=== PATIENT | female | born 1945 | race Caucasian/White ===

== ENCOUNTER 2016-09-02 10:19 | Outpatient (CLI) | payer MEDICARE ==
--- NOTE | 2016-09-02 18:04 | RAD ---
RIGHT SHOULDER 4 VIEWS: Date: 09/02/16 No fracture or dislocation was seen. The AC joint is not widened. The acromion is a little irregular and thick, but this does not appear to be anything acute. The visible adjacent ribs appeared intact . No periarticular calcifications. IMPRESSION: No acute findings. POS: HOME
== END 2016-09-02 10:20 | disposition home or self-care (01) ==
LOC: BURRAD 10:19
PROVIDERS: ATTEND Family Medicine
DX: M25.511 Pain in right shoulder (principal)
CPT/HCPCS: 36415; 80053; 80061; 83036; 85025

== ENCOUNTER 2016-09-02 10:37 | Outpatient (CLI) | payer MEDICARE ==
[2016-09-02 11:03] LABS: #Basophils 0.1 thou/uL (0.0-0.2); #Eosinphils 0.3 thou/uL (0.0-0.7); #Lymphocytes 1.8 thou/uL (1.20-3.40); #Monocytes 0.5 thou/uL (0.11-0.59); #Neutrophils 4.1 thou/uL (1.40-6.50); %Basophils 2.2 % (0.0-1.0); %Eosinophils 4.3 % (0.0-10.0); %Lymphocytes 26.2 % (21.0-51.0); %Neutrophils 60.3 % (42.0-75.0); Hemoglobin 14.6 g/dL (12.0-16.0); Mean Corpuscular HGB CONC 32.5 g/dL (32.0-36.0); Mean Corpuscular Hemoglobin 30.3 pg (27.0-31.0); Mean Corpuscular Volume 93.4 fl (81.0-99.0); Mean Platelet Volume 7.8 fL (7.4-10.4); Platelet Count 148 thou/uL (130-400); RBC Distribution Width 13.8 % (11.5-14.5); Red Blood Cell (RBC) Count 4.81 mill/uL (4.20-5.40); White Blood Cell (WBC) Count 6.8 thou/uL (4.8-10.8)
[2016-09-02 11:15] LABS: Hemoglobin A1c 6.9 % (4.0-6.0)
[2016-09-02 11:20] LABS: ALT (SGPT) 14 U/L (0-55); AST (SGOT) 33 U/L (5-34); Alkaline Phosphatase 56 U/L (40-150); Anion Gap 12 mmol/L (10-20); BUN (Urea Nitrogen) 15 mg/dL (9.8-20.1); Bilirubin, Total 0.9 mg/dL (0.2-1.2); Calc. Creatinine Clearance 0 mL/min (70-130); Calcium 9.9 mg/dL (7.8-10.44); Carbon Dioxide 28 mmol/L (23-31); Chloride 105 mmol/L (98-107); Cholesterol 139 mg/dL (< 200 Desired); Estimated GFR-MDRD 36; Globulin 3.1 g/dL (2.4-3.5); Glucose 142 mg/dL (80-115); HDL Cholesterol 28 mg/dL (>60 Neg Risk); LDL Cholesterol, Calculated 62 mg/dL; Potassium 4.4 mmol/L (3.5-5.1); Protein, Total 7.1 g/dL (5.8-8.1); Sodium 141 mmol/L (136-145); Triglycerides 243 mg/dL (Less than 150)
== END 2016-09-02 10:38 | disposition home or self-care (01) ==
LOC: HPCALD 10:37
PROVIDERS: ATTEND Family Medicine
DX: E78.5 Hyperlipidemia, unspecified (principal); E11.9 Type 2 diabetes mellitus without complications; I10 Essential (primary) hypertension
CPT/HCPCS: 36415; 80053; 80061; 83036; 85025

== ENCOUNTER 2018-02-03 10:02 | Outpatient (CLI) | payer MEDICARE ==
--- NOTE | 2018-02-03 13:14 | ULT ---
RENAL ULTRASOUND: History: Stage 4 kidney disease. Type II diabetes. Comparison: None. Technique: Sagittal and transverse imaging performed. FINDINGS: Suboptimal evaluation of both kidneys. There is bilateral renal cortical thinning and atrophy. Bilate rally no hydronephrosis. Right kidney measures 9.9 x 5.7 x 4.3 cm. Left kidney is 9.5 x 4.7 x 4.5 cm. Limited evaluation of the urinary bladder due to inadequate distention. Bladder wall thickness is 0.5 cm. Right ureteral jet is noted. IMPRESSION: Suboptimal evaluation. Grossly no hydronephrosis. POS: [facility]
== END 2018-02-03 10:03 | disposition home or self-care (01) ==
LOC: BURULT 10:02
PROVIDERS: ATTEND Internal Medicine Nephrology
DX: N18.4 Chronic kidney disease, stage 4 (severe) (principal)
CPT/HCPCS: 76770

== ENCOUNTER 2018-11-22 09:12 | Outpatient (CLI) | payer MEDICARE ==
--- NOTE | 2018-11-22 10:41 | RAD ---
Radiograph left wrist 3 views: DATE: 11/22/2018 HISTORY: 73-year-old female with left wrist pain FINDINGS: No fracture is identified. However, if there is snuffbox tenderness following trauma that suggests an occult scaphoid fracture, then the general recommendations is immobilization and follow-up imaging in 5-10 days. There are prominent subchondral cysts at the waist and proximal pole of the scaphoid. S capholunate interval is normal. Severe DJD at first CMC. No high-grade DJD in any of the rest of the joints. Alignment is normal elsewhere. IMPRESSION: Severe osteoarthrosis of the first carpometacarpal joint.
== END 2018-11-22 09:13 | disposition home or self-care (01) ==
LOC: BURRAD 09:12
PROVIDERS: ATTEND Family Medicine
DX: M25.532 Pain in left wrist (principal); M18.12 Unilateral primary osteoarthritis of first carpometacarpal joint, left hand

== ENCOUNTER 2019-04-08 10:59 | Outpatient (CLI) | payer MEDICARE ==
--- NOTE | 2019-04-08 14:04 | RAD ---
CHEST 2 VIEWS: DATE: 04/08/2019. FINDINGS: Comparison is made with an 03/22/2013 study. Mild cardiomegaly is present as before and is approxima tely the same. The lungs are clear. The vasculature is slightly more prominent than before, but I a m not convinced of failure at this point. There is no sign of a pneumothorax. The trachea is midlin e. IMPRESSION: Cardiomegaly. Mild interstitial prominence which may or may not be significant. POS: HOME
--- NOTE | 2019-04-08 14:04 | RAD ---
LEFT RIBS: 04/08/2019 TECHNIQUE: Multiple views are provided. FINDINGS: The overlying soft tissue significantly degrades the sensitivity of this study, so subtle rib fractur es might be easily missed. [id number], there were no fractures or areas strongly suspicious of such. There was no sign of pl eural effusion or pneumothorax on the left. IMPRESSION: Lowered sensitivity study showing no obvious rib fractures. POS: HOME
== END 2019-04-08 11:00 | disposition home or self-care (01) ==
LOC: BURRAD 10:59
PROVIDERS: ATTEND Family Medicine
DX: R05 Cough (principal); R07.81 Pleurodynia; I51.7 Cardiomegaly
CPT/HCPCS: 71046

== ENCOUNTER 2020-08-07 09:26 | Emergency (ER) | payer MEDICARE ==
[2020-08-07 11:15] LABS: #Basophils 0.2 thou/uL (0.0-0.2); #Eosinphils 0.3 thou/uL (0.0-0.7); #Lymphocytes 1.1 thou/uL (1.20-3.40); #Monocytes 0.7 thou/uL (0.11-0.59); %Basophils 1.8 % (0.0-1.0); %Eosinophils 2.5 % (0.0-10.0); %Lymphocytes 7.9 % (21.0-51.0); %Neutrophils 82.8 % (42.0-75.0); Mean Corpuscular Volume 90.8 fL (78.0-98.0); Mean Platelet Volume 7.7 fL (7.4-10.4); Platelet Count 159 thou/uL (130-400); RBC Distribution Width 13.9 % (11.5-14.5); Red Blood Cell (RBC) Count 4.46 mill/uL (4.20-5.40); White Blood Cell (WBC) Count 13.3 thou/uL (4.8-10.8)
[2020-08-07 11:38] LABS: ALT (SGPT) 12 U/L (8-55); AST (SGOT) 34 U/L (5-34); Albumin 3.8 g/dL (3.4-4.8); Alkaline Phosphatase 47 U/L (40-110); Anion Gap 17 mmol/L (10-20); BUN (Urea Nitrogen) 17 mg/dL (9.8-20.1); CK (CPK) 51 U/L (29-168); Calc. Creatinine Clearance 0 mL/min (70-130); Calcium 8.9 mg/dL (7.8-10.44); Carbon Dioxide 22 mmol/L (23-31); Chloride 105 mmol/L (98-107); Globulin 3.1 g/dL (2.4-3.5); Glucose 153 mg/dL (83-110); Lipase 25 U/L (8-78); Potassium 3.9 mmol/L (3.5-5.1); Protein, Total 6.9 g/dL (5.8-8.1); Sodium 140 mmol/L (136-145)
[2020-08-07 11:55] LABS: CKMB 0.8 ng/mL (0-6.6)
[2020-08-07] MEDS ORDERED: Aspirin Chewable 81 MG TAB ONE (12:13)
[2020-08-07 13:30] LABS: SARS-CoV-2 NAA Rapid Test Not Detected (NotDetected)
== END 2020-08-07 13:20 | disposition short-term general hospital (02) ==
LOC: BURERS 09:26
DX: I11.0 Hypertensive heart disease with heart failure (principal); I50.9 Heart failure, unspecified; E11.9 Type 2 diabetes mellitus without complications; J45.909 Unspecified asthma, uncomplicated; M19.90 Unspecified osteoarthritis, unspecified site; R79.89 Other specified abnormal findings of blood chemistry; Z87.891 Personal history of nicotine dependence; Z79.899 Other long term (current) drug therapy; Z79.84 Long term (current) use of oral hypoglycemic drugs; Z20.822 Contact with and (suspected) exposure to COVID-19
CPT/HCPCS: 0240U; 71045; 80053; 82550; 82553; 83690; 83880; 84484; 85025; 93005; 94640; J7620

== ENCOUNTER 2021-09-22 17:41 | Emergency (ER) | payer MEDICARE ==
[2021-09-22] MEDS ORDERED: traMADol HCl 50 MG TAB ONE (18:11)
[2021-09-22] MEDS ORDERED: Fentanyl 100 MCG/2 ML VIAL ONE (19:06)
[2021-09-22] MEDS ORDERED: Midazolam HCl 2 mg/2 ml Vial ONE (19:07)
[2021-09-22] MEDS ORDERED: Ketorolac Tromethamine 30 MG/ML VIAL ONE (19:07)
[2021-09-22] MEDS ORDERED: Enoxaparin Sodium 30 MG/0.3 ML SYRINGE ONE (19:34)
[2021-09-22] MEDS ORDERED: Bupivacaine 0.5% 10 ML VIAL ONE (19:34)
== END 2021-09-22 21:01 | disposition home or self-care (01) ==
LOC: BURERS 17:41
DX: S43.014A Anterior dislocation of right humerus, initial encounter (principal); S43.034A Inferior dislocation of right humerus, initial encounter; E11.9 Type 2 diabetes mellitus without complications; I11.0 Hypertensive heart disease with heart failure; I50.9 Heart failure, unspecified; M19.90 Unspecified osteoarthritis, unspecified site; Z87.891 Personal history of nicotine dependence; X50.0XXA Overexertion from strenuous movement or load, initial encounter
CPT/HCPCS: 23650; 94760; 96374; 96375; 99152; 99153; J1650; J1885; J2250; J3010; J3490

== ENCOUNTER 2023-05-05 15:49 | Emergency (ER) | payer OTHER ==
[2023-05-05 16:40] LABS: #Basophils 0.1 thou/uL (0.0-0.2); #Eosinphils 0.1 thou/uL (0.0-0.7); #Lymphocytes 1.1 thou/uL (1.20-3.40); #Monocytes 0.6 thou/uL (0.11-0.59); #Neutrophils 7.6 thou/uL (1.40-6.50); %Basophils 1.5 % (0.0-1.0); %Eosinophils 0.9 % (0.0-10.0); %Lymphocytes 11.2 % (21.0-51.0); %Monocytes 6.1 % (0.0-10.0); %Neutrophils 80.4 % (42.0-75.0); Hematocrit 37.5 % (36.0-47.0); Hemoglobin 11.8 g/dL (12.0-16.0); Mean Corpuscular HGB CONC 31.4 g/dL (32.0-36.0); Mean Corpuscular Hemoglobin 26.6 pg (27.0-31.0); Mean Corpuscular Volume 84.6 fl (78.0-98.0); Platelet Count 243 10x3/uL (130-400); RBC Distribution Width 13.4 % (11.5-14.5); Red Blood Cell (RBC) Count 4.43 mill/uL (4.20-5.40); White Blood Cell (WBC) Count 9.5 10x3/uL (4.8-10.8)
[2023-05-05 16:43] LABS: MDiff Complete? YES
[2023-05-05 16:44] LABS: ALT (SGPT) 10 U/L (8-55); AST (SGOT) 23 U/L (5-34); Albumin 3.5 g/dL (3.4-4.8); Alkaline Phosphatase 69 U/L (40-110); Anion Gap 17 mmol/L (10-20); BUN (Urea Nitrogen) 18 mg/dL (9.8-20.1); Bilirubin, Total 0.9 mg/dL (0.2-1.2); Calc. Creatinine Clearance 0 mL/min (70-130); Calcium 9.4 mg/dL (7.8-10.44); Carbon Dioxide 24 mmol/L (23-31); Chloride 102 mmol/L (98-107); Estimated GFR 19; Globulin 3.3 g/dL (2.4-3.5); Glucose 137 mg/dL (83-110); Potassium 3.5 mmol/L (3.5-5.1); Protein, Total 6.8 g/dL (5.8-8.1); Sodium 139 mmol/L (136-145)
[2023-05-05 16:45] LABS: Troponin I 0.073 ng/mL (< 0.028)
[2023-05-05] MEDS ORDERED: fentaNYL 50 mcg/mL 1 mL Vial ONE (17:39)
[2023-05-05 18:52] LABS: Troponin I 0.071 ng/mL (< 0.028)
[2023-05-05] MEDS ORDERED: cloNIDine 0.1 MG TAB ONE (20:03)
[2023-05-05] MEDS ORDERED: Isosorbide Dinitrate 20 MG TAB PO SCH (21:15)
[2023-05-05] MEDS ORDERED: HYDROcodone/Acetaminophen 5/325 mg Tablet ONE (22:40)
== END 2023-05-05 23:50 | disposition short-term general hospital (02) ==
LOC: BURERS 15:49
DX: S20.212A Contusion of left front wall of thorax, initial encounter (principal); E78.2 Mixed hyperlipidemia; E11.9 Type 2 diabetes mellitus without complications; I11.0 Hypertensive heart disease with heart failure; I50.9 Heart failure, unspecified; Z87.891 Personal history of nicotine dependence; Z79.899 Other long term (current) drug therapy; Z79.82 Long term (current) use of aspirin; W18.30XA Fall on same level, unspecified, initial encounter
CPT/HCPCS: 71250; 73130 ×2; 73564 ×2; 74177; 80053; 84484 ×2; 85025; 93005; J3010; 36415; 96374